=== PATIENT | male | born 1970 | race Caucasian/White ===

== ENCOUNTER 2017-03-07 16:19 | Emergency (ER) | payer OTHER ==
[2017-03-07 16:31] VITALS: BP 120/79; PULSE 98; O2SAT 100
--- NOTE | 2017-03-07 17:05 | ERPHSYRPT ---
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 DENIES HISTORY OF RADIATION OF PAIN INTO LEGS, LOSS OF BOWEL OR BLADDER FUNCTION, TRAUMA OR INJURY. Timing/Duration: yesterday Method of Injury: other (DENIES INJURY) Quality: sharp Back Pain Location: T-spine, lumbar spine Severity of Pain-Max: moderate Severity of Pain-Current: moderate Modifying Factors: Improves With: movement Associated Symptoms: denies symptoms Previous symptoms: same symptoms as today Allergies/Adverse Reactions: cortisone [Cortisone] Allergy (Verified 03/07/17 16:31) Penicillins Allergy (Verified 03/07/17 16:31) Home Medications: Ranitidine HCl [Zantac] 150 mg TID 10/29/15 [History] Duloxetine HCl [Cymbalta] 60 mg PO DAILY 03/07/17 [History] Hx Tetanus, Diphtheria Vaccination/Date Given: Yes Hx Influenza Vaccination/Date Given: Yes (2015) Hx Pneumococcal Vaccination/Date Given: No Immunizations Up to Date: Yes - Review of Systems Constitutional: No Fever, No Chills Eyes: No Symptoms Ears, Nose, & Throat: No Symptoms Respiratory: No Symptoms, No Cough, No Dyspnea Cardiac: No Chest Pain, No Edema, No Syncope Abdominal/Gastrointestinal: No Abdominal Pain, No Nausea, No Vomiting, No Diarrhea Genitourinary Symptoms: No Symptoms, No Dysuria Musculoskeletal: No Back Pain, No Neck Pain Skin: No Symptoms, No Rash Neurological: No Dizziness, No Focal Weakness, No Sensory Changes Psychological: No Symptoms Endocrine: No Symptoms All Other Systems: Reviewed and Negative - Past Medical History Pertinent Past Medical History: Yes Neurological History: Migraines Cardiac History: No Pertinent History Respiratory History: Emphysema Endocrine Medical History: No Pertinent History Musculoskeletal History: Osteoarthritis GI Medical History: Ulcer Psycho-Social History: Depression - Past Surgical History Past Surgical History: Yes Other Surgical History: jaw, - Social History Smoking Status: Current every day smoker How long have you smoked: 21 Exposure to second hand smoke: Yes Drug Use: none Patient Lives Alone: No - Nursing Vital Signs Temperature: 97.8 F Temperature Source: Oral Pulse Rate: 98 Respiratory Rate: 18 Pain Intensity: 12 - Physical Exam General Appearance: no apparent distress, alert Eye Exam: PERRL/EOMI, eyes nml inspection Neck Exam: normal inspection, non-tender, supple, full range of motion, No meningismus, No midline tenderness Respiratory Exam: normal breath sounds, lungs clear, No respiratory distress Cardiovascular Exam: regular rate/rhythm, normal heart sounds Gastrointestinal Exam: soft, No tenderness, No mass Back Exam: normal inspection, decreased range of motion, muscle spasm, other ( THERE IS PARASTERNAL THORACIC TENDERNESS T-4 TO T-8, NO CVA TENDERNESS) Extremity Exam: normal inspection, normal range of motion, No calf tenderness, No pedal edema Peripheral Pulses: carotid (R): 2+, carotid (L): 2+, femoral (R): 2+, femoral (L ): 2+, dorsalis-pedis (R): 2+, dorsalis-pedis (L): 2+ Neurologic Exam: alert, oriented x 3, cooperative, 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 - Departure Time of Disposition: 17:00 Departure Disposition: AMA Clinical Impression: CHROINC BACK PAIN Condition: Stable Critical Care Time: No
== END 2017-03-07 17:04 | disposition left against medical advice (07) ==
LOC: ED 16:19
DX: M54.9 Dorsalgia, unspecified (principal); G89.29 Other chronic pain; Z79.899 Other long term (current) drug therapy
CPT/HCPCS: 99281